=== PATIENT | female | born 1950 | race Caucasian/White ===

== ENCOUNTER → 2016-09-27 | Outpatient (CLI) | payer OTHER | LOC: MAMO 13:33 | DX: Z12.31 Encounter for screening mammogram for malignant neoplasm of breast (principal); Z78.0 Asymptomatic menopausal state | CPT/HCPCS: G0202 ==

== ENCOUNTER 2021-02-19 10:11 | Emergency (ER) | payer OTHER ==
[~2021-02-19] VITALS: Ht 165.1 cm; Wt 87.1 kg
[2021-02-19 11:54] LABS: HEMOGLOBIN 14.2 gm/dl (12.3-15.3); RED BLOOD COUNT 4.69 M/UL (4.00-5.10); WHITE BLOOD COUNT 3.3 K/UL (4.5-11.0)
[2021-02-19] MEDS ORDERED: ZOFRAN ODT 4 MG4 MG SL (13:12)
== END 2021-02-19 15:30 | disposition home or self-care (01) ==
LOC: ER1 10:11
PROVIDERS: Emergency Medicine
DX: U07.1 COVID-19 (principal); E11.9 Type 2 diabetes mellitus without complications; I10 Essential (primary) hypertension; Z23 Encounter for immunization; Z88.5 Allergy status to narcotic agent; Z88.1 Allergy status to other antibiotic agents; Z90.49 Acquired absence of other specified parts of digestive tract
CPT/HCPCS: 71045; 80053; 85025; 93005; 96374; 99284; J2405; M0243; U0002

== ENCOUNTER 2021-11-04 16:47 | Emergency (ER) | payer OTHER ==
[~2021-11-04 16:47] MED LIST: ZOFRAN ODT 4 MG4 MG SL
[2021-11-04] MEDS ORDERED: HYDROCODON-ACE1 EAC4 PO (19:00)
[2021-11-04] MEDS ORDERED: Walker (19:33)
[2021-11-04] MEDS ORDERED: [UNRECOGNIZED DRUG - SUPPLY] (19:33)
[2021-11-04] MEDS ORDERED: ZOFRAN 4 MG TAB4 MG PO (19:33)
== END 2021-11-04 20:28 | disposition home or self-care (01) ==
LOC: ER1 16:47
DX: S82.852A Displaced trimalleolar fracture of left lower leg, initial encounter for closed fracture (principal); X50.9XXA Other and unspecified overexertion or strenuous movements or postures, initial encounter; Y92.410 Unspecified street and highway as the place of occurrence of the external cause
CPT/HCPCS: 27788; 27825; 73590; 73600; 73610; 82962; 96374; 96375; 96376; 99152; 99283; J1170; J2405; J2704; J7040